=== PATIENT | female | born 1940 | race Two or more races ===

== ENCOUNTER 2020-03-09 01:06 | Emergency (ER) | payer MEDICARE, OTHER ==
[~2020-03-09] VITALS: Ht 157.5 cm; Wt 74.4 kg
--- NOTE | 2020-03-09 01:22 | NUR ---
PT CAME TO THE ED C/O LOW BLOOD PRESSURE AND DIZZINESS FOR THE PAST FEW DAYS. TOOK BP MED AT 1900. LATEST BP AT HOME IN THE 90'S PER PT. PT AAOX4, VSS, RESPIRATIONS EVEN AND UNLABORED ON RA W/ NAD NOTED. 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
--- NOTE | 2020-03-09 01:30 | NUR ---
DR VAZQUEZ AT BEDSIDE FOR EVAL
[2020-03-09 02:17] LABS: BASOPHILS # (AUTO) 0.1 /CMM (0.0-0.2); BASOPHILS % (AUTO) 0.7 % (0.0-2.0); EOSINOPHILS % (AUTO) 2.9 % (0.0-6.0); HEMATOCRIT 31 % (33-45); HEMOGLOBIN 10.5 g/dL (11.5-14.8); LYMPHOCYTES # (AUTO) 3.5 /CMM (0.8-4.8); LYMPHOCYTES % (AUTO) 37.5 % (20.0-44.0); MEAN CORPUSCULAR HGB CONC 34 g/dl (31.0-36.0); MEAN CORPUSCULAR VOLUME 89 fL (82-100); MONOCYTES # (AUTO) 0.5 /CMM (0.1-1.30); MONOCYTES % (AUTO) 5.1 % (2.0-12.0); NEUTROPHILS % (AUTO) 53.8 % (43.0-81.0); PLATELET COUNT (AUTO) 287 /CMM (150-450); RED BLOOD CELL COUNT(AUTO) 3.42 MIL/uL (4.0-5.2); WHITE BLOOD COUNT (AUTO) 9.2 K/uL (4.3-11.0)
[2020-03-09 02:29] LABS: ALANINE AMINOTRANSFERASE 22 U/L (12-78); ALBUMIN 3.5 g/dL (3.4-5.0); ALKALINE PHOSPHATASE 126 U/L (46-116); ASPARTATE AMINOTRANSFERASE 23 U/L (15-37); BILIRUBIN,TOTAL 0.4 mg/dL (0.2-1.0); CARBON DIOXIDE 30 mmol/L (21-32); CHLORIDE 94 mmol/L (98-107); CREATININE 2.9 mg/dL (0.6-1.3); GLUCOSE 141 mg/dL (74-106); POTASSIUM 4.4 mmol/L (3.5-5.1); SODIUM SERUM 132 mmol/L (136-145); TOTAL PROTEIN, SERUM 7.4 g/dL (6.4-8.2); UREA NITROGEN, BLOOD 40 mg/dL (7-18)
[2020-03-09 03:26] VITALS: BP 114/76
--- NOTE | 2020-03-09 03:26 | NUR ---
Patient discharged to home in stable condition. Written and verbal after care instructions given. Patient verbalizes understanding of instruction.IV removed. Catheter intact and site benign. Pressure and 4x4 applied to site. No bleeding noted.
== END 2020-03-09 03:27 | disposition home or self-care (01) ==
LOC: ER 01:18
DX: R42 Dizziness and giddiness (principal); I10 Essential (primary) hypertension; E11.9 Type 2 diabetes mellitus without complications; G89.29 Other chronic pain; M54.9 Dorsalgia, unspecified; Z98.890 Other specified postprocedural states; Z88.6 Allergy status to analgesic agent; Z88.0 Allergy status to penicillin; Z88.5 Allergy status to narcotic agent
CPT/HCPCS: 36415; 80053-TC; 85025-TC

== ENCOUNTER 2025-01-10 18:26 | Inpatient (IN) | payer MEDICARE, OTHER ==
[~2025-01-10] VITALS: Ht 157.5 cm; Wt 82.1 kg
[~2025-01-10 18:26] MED LIST: ALBUT2 CONTNEB; ALLO100T PO; ALPR0.5T PO; AMLO-212 PO; AMLO5TAB4 PO; ASPI-1169 PO; ATEN25TA PO; ATOR40TA PO; CARV12.52 PO; CLON1PAT2 TD; ESCI10TA PO; ESOM40CA PO; GLIM4TAB37 PO; HYDR-4077 PO; INSU100I4 SQ; INSU100V10 SQ; ISOS20TA8 PO; MONT10TA22 PO; ROSU10TA29 PO; SAXA5TAB PO; TRAM50TA2 PO; VALS320T2 PO
[2025-01-10] MEDS ORDERED: LEVETIRACETAM SOL (5 ML) 100 MG/ML UDC PO SCH (19:00)
[2025-01-10 19:02] LABS: BASOPHILS # (AUTO) 0.2 K/uL (0.0-0.2); BASOPHILS % (AUTO) 0.7 % (0.0-2.0); EOSINOPHILS # (AUTO) 0.2 K/uL (0.0-0.7); EOSINOPHILS % (AUTO) 0.7 % (0.0-6.0); HEMATOCRIT 42 % (33-45); HEMOGLOBIN 13.3 g/dL (11.5-14.8); LYMPHOCYTES # (AUTO) 14.9 K/uL (0.8-4.8); LYMPHOCYTES % (AUTO) 59.4 % (20.0-44.0); MEAN CORPUSCULAR HEMOGLOBIN 28 PG (26.0-33.0); MEAN CORPUSCULAR HGB CONC 32 g/dl (31.0-36.0); MEAN CORPUSCULAR VOLUME 89 fL (82-100); MONOCYTES # (AUTO) 0.8 K/uL (0.1-1.30); MONOCYTES % (AUTO) 3.1 % (2.0-12.0); NEUTROPHILS # (AUTO) 9.1 K/uL (1.8-8.9); NEUTROPHILS % (AUTO) 36.1 % (43.0-81.0); PLATELET COUNT (AUTO) 334 K/uL (150-450); RED BLOOD CELL COUNT(AUTO) 4.71 MIL/uL (4.0-5.2); RED CELL DISTRIBUTION WIDTH 13.3 % (11.5-15.0); WHITE BLOOD COUNT (AUTO) 25.1 K/uL (4.3-11.0)
[2025-01-10 19:11] LABS: APPEARANCE,URINE CLEAR (CLEAR); BILIRUBIN,URINE NEGATIVE (NEGATIVE); BLOOD, URINE NEGATIVE Ery/uL (NEGATIVE); COLOR,URINE YELLOW (YELLOW); KETONES,URINE 1+ mg/dL (NEGATIVE); LEUKOCYTE ESTERASE ,URINE NEGATIVE (NEGATIVE); NITRITE, URINE NEGATIVE (NEGATIVE); PROTEIN,URINE NEGATIVE (NEGATIVE); UGLUCOSE 3+ mg/dL (NEGATIVE); UROBILINOGEN,URINE 0.2 EU/dL (0.2)
[2025-01-10 19:15] LABS: CALCIUM, SERUM 9.1 mg/dL (8.5-10.1); CARBON DIOXIDE 14 mmol/L (21-32); CHLORIDE 87 mmol/L (98-107); CREATININE 2.4 mg/dL (0.6-1.3); PARTIAL THROMBOPLASTIN TIME 26.2 SEC (24.3-34.3); POTASSIUM 3.6 mmol/L (3.5-5.1); PROTHROMBIN TIME 10.6 SECS (9.2-11.1); SODIUM SERUM 128 mmol/L (136-145); UREA NITROGEN, BLOOD 33 mg/dL (7-18)
[2025-01-10 19:23] LABS: ALANINE AMINOTRANSFERASE 20 U/L (12-78); ALBUMIN 3.6 g/dL (3.4-5.0); ALKALINE PHOSPHATASE 162 U/L (46-116); ASPARTATE AMINOTRANSFERASE 18 U/L (15-37); BILIRUBIN,DIRECT 0.1 mg/dL (0.0-0.2); BILIRUBIN,TOTAL 0.5 mg/dL (0.2-1.0); TOTAL PROTEIN, SERUM 7.8 g/dL (6.4-8.2)
[2025-01-10 19:27] LABS: SERUM AMMONIA 95 umol/L (11-32)
[2025-01-10 19:29] LABS: ADD URINE CULTURE NO; BACTERIA,URINE Few /HPF (None Seen); SQUAMOUS EPITHELIAL CELL,UR Few /HPF (None Seen); YEAST,URINE Few /HPF (None Seen)
[2025-01-10 19:40] LABS: GLUCOSE 931 mg/dL (74-106)
[2025-01-10 19:45] LABS: LYMPHOCYTES % (MANUAL) 53 % (16-48); MONOCYTES % (MANUAL) 4 % (0-11.0); NEUTROPHILS % (MANUAL) 43 (42-76); PLATELET ESTIMATE ADEQUATE
[2025-01-10 19:47] LABS: LACTIC ACID 15.7 mmol/L (0.4-2.0)
[2025-01-10] MEDS: LEVETIRACETAM (500MG) 1,000 MG in IV NS 0.9% 90 ML IV SCH (19:50)
[2025-01-10] MEDS: CEFTRIAXONE 1 G in IV D5W 50 ML IV ONE ×2 (19:50→22:00)
[2025-01-10] MEDS ORDERED: METRONIDAZOLE 500MG/ NS 100ML 100 ML IV ONE (20:02)
[2025-01-10] MEDS: FLAGYL/NS RTU 500 MG/100 ML PIGGYBACK IV ONE (20:10)
[2025-01-10] MEDS ORDERED: POTASSIUM CL. PREMIX PERIPHER. 0 ML ONE (20:13)
[2025-01-10] MEDS: POTASSIUM CL. PREMIX PERIPHER. 50 ML IV SCH (20:20)
[2025-01-10] MEDS ORDERED: Z GUARD REMEDY 4 OZ OINT TP PRN (20:30)
[2025-01-10] MEDS: IV PREMIX NS +20MEQ KCL 1 L IV SCH (20:30)
[2025-01-10] MEDS ORDERED: ACETAMINOPHEN 650 MG/SUPP.RECT RC PRN (20:30)
[2025-01-10] MEDS ORDERED: LORAZEPAM INJ 2 MG/ML VIAL IV PRN (20:30)
[2025-01-10] MEDS: INSULIN REGULAR, HUMAN 100 UNITS in IV NS 0.9% 100 ML IV PRN (20:30)
[2025-01-10] MEDS ORDERED: VANCOMYCIN 1 GM /D5W 250 ML PB IV ONE (21:53)
[2025-01-10] MEDS ORDERED: CEFTRIAXONE 1GM BAG (ER ONLY) 50 ML IV ONE (21:53)
[2025-01-10] MEDS ORDERED: INSULIN REGULAR, HUMAN 100 UNIT in IV NS 0.9% 99 ML IV PRN (22:00)
[2025-01-10 22:07] LABS: ABG BASE EXCESS -6.1 mmol/L (-2.0-3.0); ABG OXYGEN SATURATION 92.6 % (94.0-98.0); ABG PCO2 32.8 mmHg (32.0-45.0); ABG PH 7.362 (7.350-7.450); ABG PO2 69.2 mmHg (83.0-108.0); ABG TOTAL HEMOGLOBIN 14.3 G/dL (12.0-16.0); COHb 0.3 % (0.5-1.5); MetHb 0.3 % (0.0-1.5); SITE, ABG RIGHT RADIAL
[2025-01-10 22:11] LABS: PHOSPHORUS 2.4 mg/dL (2.5-4.9)
[2025-01-10] MEDS: VANCOMYCIN 1 GM in IV D5W 250 ML IV ONE (22:35)
[2025-01-10] MEDS ORDERED: POTASSIUM CL. PREMIX PERIPHER. 100 ML ONE (23:15)
[2025-01-10] MEDS ORDERED: IV PREMIX NS +20MEQ KCL 1 L IV ONE (23:58)
[2025-01-11] VITALS (39 sets, daily range): BP systolic 106–155; BP diastolic 51–94; TEMP 98–98.6; O2SAT 92–98
[2025-01-11 00:45] LABS: CALCIUM, SERUM 9.7 mg/dL (8.5-10.1); CREATININE 1.9 mg/dL (0.6-1.3); PHOSPHORUS 1.7 mg/dL (2.5-4.9); POTASSIUM 3.9 mmol/L (3.5-5.1)
[2025-01-11] MEDS: HEPARIN SODIUM, PORCINE 5000 UNITS/1 ML VIAL SQ SCH (02:08)
[2025-01-11] MEDS: BLOOD SUGAR DIAGNOSTIC 1 EACH STRIP IN SCH ×2 (02:24→17:43)
[2025-01-11] MEDS: ONDANSETRON HCL/PF 4 MG/2 ML VIAL IVP PRN (03:26)
[2025-01-11] MEDS: INSULIN REGULAR, HUMAN 100 UNIT in IV NS 0.9% 99 ML IV PRN (04:02)
[2025-01-11] MEDS ORDERED: METRONIDAZOLE 500MG/ NS 100ML 100 ML IV ONE (04:11)
[2025-01-11] MEDS: METRONIDAZOLE 500MG/ NS 100ML 500 MG in PREMIX 1 EA IV SCH ×2 (04:16→13:05)
[2025-01-11 04:48] LABS: BASOPHILS % (AUTO) 0.2 % (0.0-2.0); HEMATOCRIT 42 % (33-45); HEMOGLOBIN 14.1 g/dL (11.5-14.8); LYMPHOCYTES # (AUTO) 1.5 K/uL (0.8-4.8); LYMPHOCYTES % (AUTO) 6.9 % (20.0-44.0); MEAN CORPUSCULAR HEMOGLOBIN 28 PG (26.0-33.0); MEAN CORPUSCULAR HGB CONC 34 g/dl (31.0-36.0); MEAN CORPUSCULAR VOLUME 83 fL (82-100); MONOCYTES # (AUTO) 0.5 K/uL (0.1-1.30); MONOCYTES % (AUTO) 2.4 % (2.0-12.0); NEUTROPHILS # (AUTO) 20.5 K/uL (1.8-8.9); NEUTROPHILS % (AUTO) 90.5 % (43.0-81.0); PLATELET COUNT (AUTO) 325 K/uL (150-450); RED BLOOD CELL COUNT(AUTO) 5.05 MIL/uL (4.0-5.2); WHITE BLOOD COUNT (AUTO) 22.6 K/uL (4.3-11.0)
[2025-01-11 05:00] LABS: POTASSIUM 3.5 mmol/L (3.5-5.1)
[2025-01-11] MEDS ORDERED: LEVO5TAB13 PO (08:18)
[2025-01-11] MEDS ORDERED: CARV12.5 PO (08:18)
[2025-01-11] MEDS ORDERED: DONE10TA44 PO (08:18)
[2025-01-11] MEDS ORDERED: PANT40TA49 PO (08:18)
[2025-01-11] MEDS ORDERED: MEMA10TA PO (08:18)
[2025-01-11] MEDS ORDERED: HUMALOG OMNIPOD (08:18)
[2025-01-11] MEDS ORDERED: GLIM4TAB37 PO (08:18)
[2025-01-11] MEDS ORDERED: ALPR0.5T PO (08:18)
[2025-01-11] MEDS ORDERED: ATOR40TA PO (08:18)
[2025-01-11] MEDS ORDERED: IRBE300T19 PO (08:18)
[2025-01-11] MEDS ORDERED: ISOS20TA8 PO (08:18)
[2025-01-11] MEDS: LEVETIRACETAM (500MG) 500 MG in IV NS 0.9% 100 ML IV SCH (08:28)
[2025-01-11] MEDS: PANTOPRAZOLE 40 MG VIAL IV SCH (09:11)
[2025-01-11 09:30] LABS: CALCIUM, SERUM 9.4 mg/dL (8.5-10.1); CREATININE 1.5 mg/dL (0.6-1.3); MAGNESIUM 1.7 mg/dL (1.8-2.4); PHOSPHORUS 1.7 mg/dL (2.5-4.9); POTASSIUM 4.1 mmol/L (3.5-5.1)
[2025-01-11 12:05] LABS: CREATININE, URINE 86.4 MG/DL (30.0-125.0); URINE TOTAL PROTEIN 97.4 mg/dL (0-11.9)
[2025-01-11 12:38] LABS: CALCIUM, SERUM 8.8 mg/dL (8.5-10.1); CREATININE 1.6 mg/dL (0.6-1.3); MAGNESIUM 1.7 mg/dL (1.8-2.4); PHOSPHORUS 2.1 mg/dL (2.5-4.9); POTASSIUM 4.2 mmol/L (3.5-5.1)
[2025-01-11] MEDS: Potassium Chloride 20 MEQ in IV D5/ 0.9% NACL 1,000 ML IV SCH (13:02)
[2025-01-11] MEDS: Magnesium 1GM/D5W 100ML PREMIX 100 ML IV SCH (13:16)
[2025-01-11] MEDS: Sodium Phosphate 15 MMOL in IV NS 0.9% 245 ML IV SCH (14:27)
[2025-01-11] MEDS ORDERED: DEXTROSE 50%-WATER 50 ML DISP.SYRIN IV PRN (15:00)
[2025-01-11] MEDS ORDERED: IV D5/ 0.9% NACL 1,000 ML IV PRN (15:00)
[2025-01-11] MEDS: INSULIN REGULAR, HUMAN 100 UNIT/ML 3 ML VIAL SQ PRN (17:27)
[2025-01-11 18:19] LABS: CALCIUM, SERUM 9.1 mg/dL (8.5-10.1); CREATININE 1.7 mg/dL (0.6-1.3); MAGNESIUM 2.4 mg/dL (1.8-2.4); PHOSPHORUS 3.8 mg/dL (2.5-4.9); POTASSIUM 3.8 mmol/L (3.5-5.1)
[2025-01-11 18:46] LABS: THYROID STIMULATING HORMONE 0.48 uIU/mL (0.358-3.74)
[2025-01-11] MEDS ORDERED: CEFTRIAXONE 1 G in IV D5W 50 ML IV SCH (19:30)
[2025-01-11] MEDS: CEFTRIAXONE 1 G in IV D5W 50 ML IV SCH (20:11)
[2025-01-11 21:48] LABS: CREATININE 1.9 mg/dL (0.6-1.3); MAGNESIUM 2.3 mg/dL (1.8-2.4); PHOSPHORUS 2.5 mg/dL (2.5-4.9); POTASSIUM 3.7 mmol/L (3.5-5.1)
[2025-01-11] MEDS: IV NS 0.9% 1,000 ML IV PRN (23:12)
[2025-01-12] VITALS (15 sets, daily range): BP systolic 100–145; BP diastolic 51–81; TEMP 97–98.7; O2SAT 94–99
[2025-01-12 04:55] LABS: BASOPHILS # (AUTO) 0.1 K/uL (0.0-0.2); BASOPHILS % (AUTO) 0.5 % (0.0-2.0); EOSINOPHILS # (AUTO) 0.1 K/uL (0.0-0.7); EOSINOPHILS % (AUTO) 0.8 % (0.0-6.0); HEMATOCRIT 34 % (33-45); HEMOGLOBIN 11.7 g/dL (11.5-14.8); LYMPHOCYTES # (AUTO) 5.4 K/uL (0.8-4.8); LYMPHOCYTES % (AUTO) 35.3 % (20.0-44.0); MEAN CORPUSCULAR HEMOGLOBIN 29 PG (26.0-33.0); MEAN CORPUSCULAR HGB CONC 34 g/dl (31.0-36.0); MEAN CORPUSCULAR VOLUME 83 fL (82-100); MONOCYTES # (AUTO) 0.7 K/uL (0.1-1.30); MONOCYTES % (AUTO) 4.5 % (2.0-12.0); NEUTROPHILS % (AUTO) 58.9 % (43.0-81.0); PLATELET COUNT (AUTO) 252 K/uL (150-450); RED BLOOD CELL COUNT(AUTO) 4.08 MIL/uL (4.0-5.2); RED CELL DISTRIBUTION WIDTH 13.5 % (11.5-15.0); WHITE BLOOD COUNT (AUTO) 15.2 K/uL (4.3-11.0)
[2025-01-12 05:21] LABS: ALBUMIN 2.8 g/dL (3.4-5.0); BILIRUBIN,TOTAL 0.4 mg/dL (0.2-1.0); CALCIUM, SERUM 8.6 mg/dL (8.5-10.1); CREATININE 1.4 mg/dL (0.6-1.3); MAGNESIUM 2.1 mg/dL (1.8-2.4); PHOSPHORUS 2.6 mg/dL (2.5-4.9); POTASSIUM 2.9 mmol/L (3.5-5.1); TOTAL PROTEIN, SERUM 6.7 g/dL (6.4-8.2)
[2025-01-12] MEDS: POTASSIUM CL. PREMIX PERIPHER. 50 ML IV SCH (07:51)
[2025-01-12 16:05] LABS: CALCIUM, SERUM 8.7 mg/dL (8.5-10.1); CREATININE 1.7 mg/dL (0.6-1.3); POTASSIUM 4.3 mmol/L (3.5-5.1)
[2025-01-12] MEDS: *INSULIN REGULAR(HUMULIN R)HUM 100 UNIT/ML VIAL SQ PRN (22:07)
[2025-01-13] VITALS: BP 114/58; TEMP 98.4; O2SAT 98
[2025-01-13 04:00] VITALS: BP 131/57; TEMP 97.9; O2SAT 98
[2025-01-13 05:12] LABS: FOLIC ACID 10.8 ng/mL (>3.0)
[2025-01-13 06:08] LABS: PTH, INTACT 58 pg/mL (15-65)
[2025-01-13 07:32] LABS: BASOPHILS # (AUTO) 0.1 K/uL (0.0-0.2); BASOPHILS % (AUTO) 0.5 % (0.0-2.0); EOSINOPHILS # (AUTO) 0.2 K/uL (0.0-0.7); EOSINOPHILS % (AUTO) 1.6 % (0.0-6.0); HEMATOCRIT 35 % (33-45); HEMOGLOBIN 11.5 g/dL (11.5-14.8); LYMPHOCYTES # (AUTO) 5.7 K/uL (0.8-4.8); LYMPHOCYTES % (AUTO) 38.9 % (20.0-44.0); MEAN CORPUSCULAR HEMOGLOBIN 28 PG (26.0-33.0); MEAN CORPUSCULAR HGB CONC 33 g/dl (31.0-36.0); MEAN CORPUSCULAR VOLUME 86 fL (82-100); MONOCYTES # (AUTO) 0.5 K/uL (0.1-1.30); MONOCYTES % (AUTO) 3.2 % (2.0-12.0); NEUTROPHILS # (AUTO) 8.2 K/uL (1.8-8.9); NEUTROPHILS % (AUTO) 55.8 % (43.0-81.0); PLATELET COUNT (AUTO) 233 K/uL (150-450); RED BLOOD CELL COUNT(AUTO) 4.09 MIL/uL (4.0-5.2); RED CELL DISTRIBUTION WIDTH 13.2 % (11.5-15.0); WHITE BLOOD COUNT (AUTO) 14.7 K/uL (4.3-11.0)
[2025-01-13 08:00] VITALS: BP 144/69; TEMP 98.4; O2SAT 95
[2025-01-13 08:15] LABS: CALCIUM, SERUM 8.3 mg/dL (8.5-10.1); CREATININE 1.5 mg/dL (0.6-1.3); POTASSIUM 4.1 mmol/L (3.5-5.1)
[2025-01-13 12:00] VITALS: BP 154/75; TEMP 98.6; O2SAT 98
[2025-01-13 16:00] VITALS: BP 157/61; TEMP 99; O2SAT 98
[2025-01-13] MEDS: CARVEDILOL 12.5 MG TABLET PO SCH (17:12)
[2025-01-13 20:00] VITALS: BP 119/48; TEMP 98.8; O2SAT 96
[2025-01-13] MEDS: LEVETIRACETAM (250 MG) 250 MG TABLET PO SCH (20:27)
[2025-01-13] MEDS: MEMANTINE HCL 5 MG TABLET PO SCH (21:16)
[2025-01-13] MEDS: INSULIN GLARGINE, 100 UNIT/ML CARTRIDGE SQ SCH (22:05)
[2025-01-14] VITALS: BP 125/50; TEMP 98.7; O2SAT 96
[2025-01-14 04:00] VITALS: BP 147/71; TEMP 97.8; O2SAT 96
[2025-01-14 06:34] LABS: BASOPHILS # (AUTO) 0.1 K/uL (0.0-0.2); BASOPHILS % (AUTO) 0.6 % (0.0-2.0); EOSINOPHILS # (AUTO) 0.3 K/uL (0.0-0.7); EOSINOPHILS % (AUTO) 2.5 % (0.0-6.0); HEMATOCRIT 33 % (33-45); HEMOGLOBIN 10.9 g/dL (11.5-14.8); LYMPHOCYTES # (AUTO) 4.4 K/uL (0.8-4.8); LYMPHOCYTES % (AUTO) 32.8 % (20.0-44.0); MEAN CORPUSCULAR HEMOGLOBIN 28 PG (26.0-33.0); MEAN CORPUSCULAR HGB CONC 34 g/dl (31.0-36.0); MEAN CORPUSCULAR VOLUME 85 fL (82-100); MONOCYTES # (AUTO) 0.6 K/uL (0.1-1.30); MONOCYTES % (AUTO) 4.7 % (2.0-12.0); NEUTROPHILS # (AUTO) 7.9 K/uL (1.8-8.9); NEUTROPHILS % (AUTO) 59.4 % (43.0-81.0); PLATELET COUNT (AUTO) 223 K/uL (150-450); RED BLOOD CELL COUNT(AUTO) 3.85 MIL/uL (4.0-5.2); RED CELL DISTRIBUTION WIDTH 13.4 % (11.5-15.0); WHITE BLOOD COUNT (AUTO) 13.3 K/uL (4.3-11.0)
[2025-01-14 06:52] LABS: CALCIUM, SERUM 8.2 mg/dL (8.5-10.1); CREATININE 1.4 mg/dL (0.6-1.3); MAGNESIUM 1.4 mg/dL (1.8-2.4); PHOSPHORUS 3.3 mg/dL (2.5-4.9); POTASSIUM 3.8 mmol/L (3.5-5.1)
[2025-01-14 08:00] VITALS: BP 151/64; TEMP 98.6; O2SAT 97
[2025-01-14] MEDS: PANTOPRAZOLE 40 MG TABLET.DR PO SCH (09:05)
[2025-01-14] MEDS: DONEPEZIL 5 MG TABLET PO SCH (09:05)
[2025-01-14] MEDS: ATORVASTATIN 40 MG TABLET PO SCH (09:05)
[2025-01-14] MEDS: MAGNESIUM OXIDE 400 MG TABLET PO SCH (11:13)
[2025-01-14 12:00] VITALS: BP 114/49; TEMP 98.4; O2SAT 98
[2025-01-14] MEDS ORDERED: LEVO500T90 PO (13:40)
[2025-01-14] MEDS ORDERED: LEVE500T9 PO (13:40)
[2025-01-14 16:00] VITALS: BP 148/64; TEMP 98.1; O2SAT 97
[2025-01-15 12:11] LABS: *SPE ALPHA-1-GLOBULIN 0.1 g/dL (0.0-0.4); *SPE BETA GLOBULIN 0.9 g/dL (0.7-1.3); *SPE M-SPIKE Not Observed g/dL (Not Observed)
== END 2025-01-14 16:53 | disposition home health service (06) | DRG 637 ==
LOC: ER 18:33 → ICU 01-11 00:38 → TELE1 01-12 11:01
PROVIDERS: ATTEND Nurse Practitioner Family
DX: E11.10 Type 2 diabetes mellitus with ketoacidosis without coma (principal); G92.8 Other toxic encephalopathy; E87.1 Hypo-osmolality and hyponatremia; N17.9 Acute kidney failure, unspecified; E72.20 Disorder of urea cycle metabolism, unspecified; R47.01 Aphasia; R65.10 Systemic inflammatory response syndrome (SIRS) of non-infectious origin without acute organ dysfunction; I12.9 Hypertensive chronic kidney disease with stage 1 through stage 4 chronic kidney disease, or unspecified chronic kidney disease; N18.9 Chronic kidney disease, unspecified; Z20.822 Contact with and (suspected) exposure to COVID-19; E11.22 Type 2 diabetes mellitus with diabetic chronic kidney disease; Z91.199 Patient's noncompliance with other medical treatment and regimen due to unspecified reason; G89.29 Other chronic pain; Z98.890 Other specified postprocedural states; Z88.0 Allergy status to penicillin; Z88.5 Allergy status to narcotic agent; Z88.8 Allergy status to other drugs, medicaments and biological substances; Z79.84 Long term (current) use of oral hypoglycemic drugs; R56.9 Unspecified convulsions; E88.9 Metabolic disorder, unspecified; M17.12 Unilateral primary osteoarthritis, left knee; F01.50 Vascular dementia, unspecified severity, without behavioral disturbance, psychotic disturbance, mood disturbance, and anxiety; E86.9 Volume depletion, unspecified; Z68.30 Body mass index [BMI] 30.0-30.9, adult; E66.9 Obesity, unspecified; D72.829 Elevated white blood cell count, unspecified
CPT/HCPCS: 36415; 36600; 70450-TC; 71045-TC; 73564-TC; 76770-TC; 80048-TC; 80053-TC; 80061-TC; 80076-TC; 81001; 82010-TC; 82140-TC; 82550-TC; 82553; 82570-TC; 82607-TC; 82803-TC; 82962-TC; 83605-TC; 83735-TC; 83880; 83921; 83970; 84100-TC; 84155; 84165; 84300-TC; 84425; 84443-TC; 84484-TC; 85025-TC; 85730-TC; 87040-TC; 87081-TC; 93307-TC; 93971-TC; 95819-TC; 97112-TC; 97116-TC; 97530-TC; A4216; A4223; A9563; G0378; J0696; J1644; J1815; J1953; J2405; J2470; J3370; J3475; J3480; J3490; J7030; J7042; J7050; J7060